=== PATIENT | female | born 1990 | race Caucasian/White ===

== ENCOUNTER 2018-03-30 03:00 | Outpatient (CLI) | payer OTHER, SELFPAY ==
[2018-03-30 03:32] VITALS: BMI 29.5
[2018-03-30 04:04] LABS: ROM Internal Control Test YES-OK TO RESULT pt. (Internal QC); ROM Patient Test Negative (Negative)
--- NOTE | 2018-03-31 08:05 | OB.TRI.NOTE ---
- Problem List (1) r/o srom Status: Acute History of Present Illness Date of Service: 03/30/18 Was patient seen by the physician?: No Reason For Visit: R/O LABOR Date of Service: 03/30/18 Final DUSYT: 04/01/18 Final DUSTY Source: US <20 weeks Gestational age: 39 Weeks and 6 Days History of Present Illness: Patient presents to triage reporting small gush of clear fluid leaking at 0030. Patient also notes scant irregular cramping. Denies vaginal bleeding. Reports +FM. Allergies No Known Allergies Allergy (Verified 03/30/18 03:34) Physical Exam Vitals: Vital signs and assessment per RN notes - patient was normotensive and afebrile NST - FHR Rate Baby A Baseline: 135 Variability:: Moderate Accelerations:: 15 x 15 Decelerations:: None NST Reactive:: Yes, Appropriate for gestational age FHR Category:: Category I Uterine Activity:: Ctx q 3-9 minutes, not easily palpable Impression/Plan 28 y/o @ 39.5 weeks, R/O SROM, False Labor P: 1) ROMPLus negative, no cervical change noted 2) Discharge patient to home 3) Labor precautions reviewed 4) RTC as scheduled for next visit with [facility] Purvi GUALLAP
--- NOTE | 2018-03-31 08:12 | OB.TRI.HP_ITS ---
- Problem List (1) r/o srom Status: Acute History of Present Illness Date of Service: 03/30/18 Was patient seen by the physician?: No Reason For Visit: R/O LABOR Date of Service: 03/30/18 Final DUSTY: 04/01/18 Final DUSTY Source: US <20 weeks Gestational age: 39 Weeks and 6 Days History of Present Illness: Patient presents to triage reporting small gush of clear fluid leaking at 0030. Patient also notes scant irregular cramping. Denies vaginal bleeding. Reports + FM. Allergies No Known Allergies Allergy (Verified 03/30/18 03:34) Physical Exam Vitals: Vital signs and assessment per RN notes - patient was normotensive and afebrile NST - FHR Rate Baby A Baseline: 135 Variability:: Moderate Accelerations:: 15 x 15 Decelerations:: None NST Reactive:: Yes, Appropriate for gestational age FHR Category:: Category I Uterine Activity:: Ctx q 3-9 minutes, not easily palpable Impression/Plan 28 y/o @ 39.5 weeks, R/O SROM, False Labor P: 1) ROMPLus negative, no cervical change noted 2) Discharge patient to home 3) Labor precautions reviewed 4) RTC as scheduled for next visit with [facility] Purvi GUALLPA
== END 2018-03-30 04:20 | disposition home or self-care (01) ==
LOC: WPOUT 03:31 → WP 03:31
PROVIDERS: Family Provider Family Medicine; PCP Family Medicine; Visit Provider Obstetrics & Gynecology
DX: O47.1 False labor at or after 37 completed weeks of gestation (principal); Z3A.39 39 weeks gestation of pregnancy
CPT/HCPCS: 59025; 84112; 99218; G0378

== ENCOUNTER 2018-04-06 20:00 | Inpatient (IN) | payer OTHER, SELFPAY ==
[2018-04-06] MEDS: Lactated Ringers 1,000 ML 50 ML IV (20:50)
[2018-04-06 20:51] VITALS: BMI 41.4
[2018-04-06 21:11] LABS: Hematocrit 31.8 % (37-47); Hemoglobin 10.3 g/dl (12.0-15.0); Mean Corp Hgb Conc 32.4 g/gl (32-36); Mean Corpuscular Hgb 26.8 pg (27.0-32.0); Mean Corpuscular Volume 82.6 fL (81-99); Mean Platelet Vol. 9.6 fl (6.2-12.0); Platelet Count 259 K/mm3 (150-450); RBC Distribution Width CV 14.3 % (11.6-14.6); RBC Distribution Width SD 43.2 fl (35.1-43.9); Red Blood Count 3.85 M/mm3 (4.2-5.4); White Blood Count 16.9 K/mm3 (4.4-11.0)
[2018-04-06 21:12] LABS: Scan Indicated on CBC? Y/N NO
--- NOTE | 2018-04-06 22:06 | PCM.HP.OB ---
History Date of Admission: 04/06/18 Final DUSTY: 04/01/18 Final DUSTY Source: US <20 weeks Gestational age: 40 Weeks and 5 Days History of this : This is a 28 year-old, G [], P [], at 40 weeks gestational age. Allergies No Known Allergies Allergy (Verified 03/30/18 03:34) Home Medications: Home Medications Vits [Prenatabs FA ] 1 tab PO DAILY 04/06/18 Smoking Status: Never smoker Alcohol: None Heart Tracin with minimal to moderate variability TOCO Analysis: Q2 min History Past Pregnancies: Past Pregnancies Delivery Date Name GA/Weeks Outcome Route Weight Gender Labor Length Anesthesia Delivery Location Provider FOB Labs: GBS negative see [facility] Physical Exam General: Alert, Oriented x3 Abdomen: Soft, Non Tender, Non-Distended, Gravid Cervix Dilation (cm): 10 Station: -1 Effacement (%): 100 Assessment/Plan All Active Problems r/o srom (Acute) 28yo female in labor Patient now complete pushing Nitrous oxide for pain, declines epidural Routine care
[2018-04-06] MEDS: Oxytocin 30 units/NS 500 ml 30 UNITS/500 ML IV.SOLN 334 UNITS IV (22:42)
--- NOTE | 2018-04-06 23:05 | PCM.OB.VAG ---
Vaginal Delivery Maternal Presentation: Active Labor Amniotic Membrane Rupture Type: Spontaneous at home Amniotic Fluid Description: Clear Final DUSTY: 04/01/18 Gestational age: 40 Weeks and 5 Days Date of Procedure: 04/06/18 Pre-Operative Diagnosis: Labor Post-Operative Diagnosis: Labor Surgery/ Procedure Performed: Spontaneous Vaginal Delivery Type of Anesthesia: Local with 1% lidocaine - and nitrous oxide Description of Procedure: Patient prepped & draped when c/c/+3. She pushed & delivered head easily. Gentle traction placed on head to allow delivery of anterior & posterior shoulders. No excess traction placed on head. Body delivered easily & placed on maternal abdomen. 3VC clamped & cut in delayed fashion. Placenta delivered with gentle traction. Good uterine tone obtained. Presentation: JUSTIN Placental Delivery Description: Expressed Placenta Disposition: [facility] Cord Vessel Description: 3 Vessels Cord Entanglement: None Estimated Blood Loss: 200ml A gender: Female (1 minute): 8 (5 minute): 9 Episiotomy Description: None Laceration: 2nd degree - perineal - repaired with 3-0 vicryl Medications given after delivery: IV Pitocin Complications: None
[2018-04-06] MEDS: Oxytocin 30 units/NS 500 ml 30 UNITS/500 ML IV.SOLN 167 UNITS IV (23:15)
[2018-04-06] MEDS: Methylergonovine 0.2 MG/ML Ampul IM (23:35)
[2018-04-06] MEDS: Ibuprofen 600 MG Tablet PO (23:39)
[2018-04-07 04:00] VITALS: BP 116/71; PULSE 77; RESP 18; TEMP 36.8
[2018-04-07 08:47] VITALS: BP 120/78; PULSE 73; RESP 16; TEMP 36.6; O2SAT 99
--- NOTE | 2018-04-07 09:00 | PCM.PN.OB ---
Subjective: Doing well per patient and nursing staff. Ambulating and taking PO without difficulty. Voiding and passing flatus. without complaints. - Physical Exam General: Alert, Oriented x3, Cooperative HEENT: Atraumatic, Normocephalic Lungs: Clear to auscultation, Normal air movement, No rhonchi, No wheeze Cardiovascular: Regular rate, Regular Rhythm, No murmurs Abdomen: Bowel Sounds Present, Soft, - - Fundus firm 1 below U Extremities: Edema - +1 BLE, non pitting. Psych/Mental Status: Normal Affect, Appropriate Vital Signs Temp Pulse Resp BP Pulse Ox 98 F 73 16 120/78 99 04/07/18 08:47 04/07/18 08:47 04/07/18 08:47 04/07/18 08:47 04/07/18 08:47 Oxygen Delivery Method Room Air Weight: 184 lb 15.485 oz Body Mass Index (BMI) 41.4 Intake and Output for Last 24 Hours 04/05/18 04/06/18 04/07/18 23:59 23:59 23:59 Intake Total 1180 / 1180 Output Total 750 / 750 Balance 430 / 430 Laboratory Tests Past 24 Hrs 04/06/18 04/06/18 20:50 20:50 WBC 16.9 H RBC 3.85 L Hgb 10.3 L Hct 31.8 L MCV 82.6 MCH 26.8 L MCHC 32.4 RDW 14.3 RDW Differential 43.2 Plt Count 259 MPV 9.6 Blood Type A POSITIVE Antibody Screen NEGATIVE Medical Necessity - Tobacco Use Smoking Status: Never smoker Assessment/Plan All Active Problems r/o srom (Acute) A: PPD#1 P: 1) Routine PP orders 2) Pain controlled 3) Planning D/C home tomorrow.
[2018-04-07 16:40] VITALS: BP 157/85; PULSE 87; RESP 16; O2SAT 98
[2018-04-07 16:45] VITALS: BP 123/72; TEMP 37.4
--- NOTE | 2018-04-07 16:50 | NURSING ---
assessment unchanged from 0800
[2018-04-07 20:00] VITALS: BP 120/84; PULSE 80; RESP 16; TEMP 37.6
[2018-04-08 02:30] VITALS: BP 126/80; PULSE 84; RESP 16; TEMP 37.3
--- NOTE | 2018-04-08 08:01 | PCM.PN.OB ---
Subjective: pt seen at bedside, doing well. pt reports good pain control. lochia mild. - Physical Exam General: Alert, Oriented x3 Abdomen: Soft, Non Tender, Non-Distended, - - fundus firm Vital Signs Temp Pulse Resp BP Pulse Ox 99.1 F 84 16 126/80 H 98 04/08/18 02:30 04/08/18 02:30 04/08/18 02:30 04/08/18 02:30 04/07/18 16:40 Oxygen Delivery Method Room Air Weight: 83.9 kg Body Mass Index (BMI) 41.4 Intake and Output for Last 24 Hours 04/06/18 04/07/18 04/08/18 23:59 23:59 23:59 Intake Total 1180 / 1180 Output Total 750 / 750 Balance 430 / 430 Medical Necessity - Tobacco Use Smoking Status: Never smoker Assessment/Plan All Active Problems r/o srom (Acute) PPD#2, doing well routine care dc home
--- NOTE | 2018-04-08 08:04 | DCINST_ITS ---
Discharge Diet: No Restrictions Discharge Activity: Return to Normal Activity, May not drive while taking narcotic pain medications., May Shower May resume sexual activity in: 4-6 weeks Additional Activity Instructions:: Nothing in the vagina for 4-6 weeks. You may return to work/school in 6 weeks. Call your doctor if your incision/area has: Continuous Slow Oozing, Sudden Increased Bleeding, Increased Pain/ Swelling, Increased Redness, Foul Smelling Discharge Additional Instructions: If you experience any of the following, contact your healthcare provider. * Bleeding that soaks a pad every hour for 2 hours * Fever 100.4 or higher * Unrelieved incision or abdominal pain * Swelling, redness, discharge or bleeding from your incision or episiotomy site * Your incision begins to separate * Problems urinating (including inability to urinate or burning while urinating) . * Visual changes * Severe headache * Flu-like symptoms * Pain or redness in one of both of your breasts * Pain, warmth, tenderness or swelling in your legs, especially the calf area * Frequent nausea and vomiting * Symptoms of depression or anxiety If you experience any of the following, call 911 or go to the nearest Emergency Room. * Chest pain * Problems breathing * Seizure activity * Partial or complete paralysis of a body part, slurred speech, weakness or drooping of the face, or a sudden inability to walk or hold your balance Allergies/Adverse Reactions: Allergies No Known Allergies Allergy (Verified 03/30/18 03:34) Medications to take at Discharge Vits [Prenatabs FA ] 1 tab PO DAILY 04/06/18 Ibuprofen [Motrin] 800 mg PO Q8H #30 tab 04/08/18 The following prescriptions were given: Ibuprofen [Motrin] 800 mg PO Q8H #30 tab When: Call to make an appointment with your doctor in 6 weeks. If you had elevated Blood Pressure or 4th degree laceration you will need to be seen in 2 weeks. Primary Care Physician: Matthwe Degroot MD [Primary Care Provider] - Test Results: Test results from this visit will be discussed in further detail at your follow- up appointment, if applicable.
[2018-04-08] MEDS: Ibuprofen 600 MG Tablet PO (10:28)
[2018-04-08 10:30] VITALS: BP 127/77; PULSE 77; RESP 24; TEMP 36.6; O2SAT 96
[2018-04-08 15:16] VITALS: BP 127/85; PULSE 74; RESP 20; TEMP 36.6; O2SAT 98
== END 2018-04-08 16:25 | disposition home or self-care (01) | DRG 775 ==
PROVIDERS: Admitting Provider Obstetrics & Gynecology; Family Provider Family Medicine; PCP Family Medicine; Visit Provider Obstetrics & Gynecology
DX: O42.02 Full-term premature rupture of membranes, onset of labor within 24 hours of rupture (principal); O70.1 Second degree perineal laceration during delivery; Z3A.40 40 weeks gestation of pregnancy; Z37.0 Single live birth
CPT/HCPCS: 59025; 59050; 85027; 86850; 86900; 99218; J7120; G0378

== ENCOUNTER 2018-04-13 12:10 | Outpatient (CLI) | payer OTHER, SELFPAY | END 2018-04-13 13:25 | disposition home or self-care (01) | LOC: WPOUT 12:15 → WP 12:16 | PROVIDERS: Family Provider Family Medicine; PCP Family Medicine; Visit Provider Obstetrics & Gynecology | DX: Z39.1 Encounter for care and examination of lactating mother (principal) | CPT/HCPCS: 96152 ==

== ENCOUNTER 2020-12-06 14:19 | Inpatient (IN) | payer OTHER, SELFPAY ==
[2020-12-06] VITALS (12 sets, daily range): BP systolic 105–139; BP diastolic 57–95; PULSE 69–106; RESP 16; TEMP 36.6; BMI 33.2
[2020-12-06] MEDS: Lactated Ringers 1,000 ML 200 ML IV (14:30)
[2020-12-06 14:53] LABS: Absolute Lymphocyte Count 2.03 X10^3/uL (0.83-4.51); Absolute Neutrophil Count 8.6 X10^3/uL (2.0-7.7); Basophil# 0.05 X10^3/uL; Basophil% 0.4 % (0-1); Eosinophil# 0.14 X10^3/uL; Eosinophils% 1.2 % (0-5); Hematocrit 34.7 % (37-47); Hemoglobin 10.7 g/dL (12.0-15.0); Lymphocyte # 2.03 X10^3/ul (4.0); Lymphocyte % 17.4 % (19-41); Mean Corp Hgb Conc 30.8 g/dL (32-36); Mean Corpuscular Hgb 25.7 pg (27.0-32.0); Mean Corpuscular Volume 83.2 fL (81-99); Mean Platelet Vol. 9.2 fl (6.2-12.0); Monocyte# 0.69 X10^3/uL; Monocyte% 5.9 % (0-10); NRBC Flagged by Analyzer 0 % (0-5); Neutrophil # 8.64 X10^3/uL (2.7-7.7); Neutrophil % 74.3 % (47-70); Platelet Count 287 K/mm3 (150-450); RBC Distribution Width CV 14.1 % (11.6-14.6); RBC Distribution Width SD 42.7 fl (35.1-43.9); Red Blood Count 4.17 M/mm3 (4.2-5.4); White Blood Count 11.6 K/mm3 (4.4-11.0)
[2020-12-06] MEDS: Oxytocin 30 units/NS 500 ml 30 UNITS/500 ML IV.SOLN 334 UNITS IV (15:11)
--- NOTE | 2020-12-06 15:18 | HP.PCM_ITS ---
History Date of Admission: 04/06/18 Final DUSTY: 12/06/20 Final DUSTY Source: US <20 weeks Gestational age: 40 Weeks and 0 Days History of this : This is a 30 year-old, G 2P1, at 40 weeks gestational age presents in active labor with spontaneous rupture membranes. Patient found to be 8 cm on arrival.admitted for labor. Allergies No Known Allergies Allergy (Verified 03/30/18 03:34) Home Medications: Home Medications Vits [Prenatabs FA ] 1 tab PO DAILY 04/06/18 Ibuprofen [Motrin] 800 mg PO Q8H #30 tab 04/08/18 Smoking Status: Never smoker Alcohol: None Number of Fetus(es): 1 History Past Pregnancies: Past Pregnancies Delivery Date Name GA/ Weeks Outcome Route Wt Sex Labor Length Anesthesia Delivery Location Provider FOB Physical Exam Vitals: Vital Signs Pulse BP 71 139/77 H 12/06/20 14:14 12/06/20 14:14 General: Alert, Oriented x3 Abdomen: Soft, Non Tender, Gravid Neurological: Cranial nerves II-XII grossly intact 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
--- NOTE | 2020-12-06 15:20 | OP.PCM_ITS ---
Vaginal Delivery Maternal Presentation: Active Labor, Spontaneous Rupture of Membranes Amniotic Membrane Rupture Type: Spontaneous at home Amniotic Fluid Description: Clear Final DUSTY: 12/06/20 Gestational age: 40 Weeks and 0 Days Date of Procedure: 12/06/20 Pre-Operative Diagnosis: Active labor, term gestation Post-Operative Diagnosis: same, live female Surgery/ Procedure Performed: Spontaneous Vaginal Delivery Type of Anesthesia: None Description of Procedure: precipitous delivery at 1407 on 12/06/20. of live female born without complications. Good maternal pushing efforts delivered the head followed by the anterior shoulder with gentle downward traction followed by the rest the 's body. was vigorous at and placed on the mother's chest for immediate skin to skin. Delayed cord clamping was performed. Pitocin was started and the placenta was delivered spontaneously without any complication and delivered intact. First-degree perineal laceration was repaired with the 3- 0 rapide. Lidocaine was first injected prior to the repair. Presentation: Vertex Placental Delivery Description: Spontaneous Placenta Disposition: [facility] Cord Vessel Description: 3 Vessels Cord Entanglement: None Estimated Blood Loss: 150 A gender: Female (1 minute): 8 (5 minute): 9 Episiotomy Description: None Laceration: Perineal Extension/lac - lidocaine 3cc injected and repaired with 3- 0 rapide., 1st degree Medications given after delivery: IV Pitocin Complications: None
[2020-12-06] MEDS: Ibuprofen 600 MG Tablet PO (16:09)
[2020-12-06] MEDS: Acetaminophen 500 MG Tablet 1000 MG PO (18:19)
[2020-12-07] VITALS: BP 130/64; PULSE 75; RESP 16; TEMP 36.9
[2020-12-07 04:00] VITALS: BP 116/69; PULSE 75; RESP 16; TEMP 37
[2020-12-07] MEDS: Acetaminophen 500 MG Tablet 1000 MG PO (04:09)
--- NOTE | 2020-12-07 08:04 | PCM.PN.OB ---
Subjective: Patient seen at bedside. Resting comfortably. Denies any pain. Ambulating and voiding without difficulty. without difficulty. Desires discharge home later today. - Physical Exam Vitals/I&O's: Vital Signs Temp Pulse Resp BP 98.6 F 75 16 116/69 12/07/20 04:00 12/07/20 04:00 12/07/20 04:00 12/07/20 04:00 Oxygen Delivery Method Room Air Weight: 206 lb Body Mass Index (BMI) 33.2 Intake and Output for Last 24 Hours 12/05/20 12/06/20 12/07/20 23:59 23:59 23:59 Intake Total 836.67 / 836.67 Balance 836.67 / 836.67 General: Alert, Oriented x3, Cooperative HEENT: Atraumatic Oral: Moist Mucosa Neck: Supple Lungs: Normal air movement Cardiovascular: Regular rate Abdomen: Soft, Non Tender, Passing Flatus Extremities: Capillary Refill Less than 3 Seconds Skin: No rashes Neurological: Cranial nerves II-XII grossly intact Psych/Mental Status: Normal Affect, Appropriate Microbiology Past 72 Hours 12/06/20 14:30 Mucosa - Nose SARS-CoV-2 Antigen (Rapid) - Final Laboratory Results 12/06/20 14:30: WBC 11.6 H, RBC 4.17 L, Hgb 10.7 L, Hct 34.7 L, MCV 83.2, MCH 25.7 L, MCHC 30.8 L, RDW Std Deviation 42.7, RDW Coeff of Neil 14.1, Plt Count 287, MPV 9.2, Immature Gran % (Auto) 0.800, Neut % (Auto) 74.3 H, Lymph % (Auto) 17.4 L, [place] % (Auto) 5.9, Eos % (Auto) 1.2, Baso % (Auto) 0.4, Absolute Neuts (auto) 8.6 H, Absolute Lymphs (auto) 2.03, Nucleated RBC % 0 12/06/20 14:30: Blood Type A POSITIVE, Antibody Screen NEGATIVE Current Medications Acetaminophen (Acetaminophen 500 Mg Tablet) 1,000 mg PO Q8H PRN PRN PRN Reason: Pain Score 1-3 Last Admin: 12/07/20 04:09 Dose: 1,000 mg Documented by: Bisacodyl (Bisacodyl 10 Mg Suppository) 10 mg RC UD PRN PRN Reason: If no BM Dibucaine (Dibucaine 30 Gm Tube) 1 applic TOPICAL TID PRN PRN; Protocol PRN Reason: Discomfort Hydrocortisone (Hydrocortisone 2.5% Crm) 1 applic TOPICAL TID PRN PRN; Protocol PRN Reason: Discomfort Ibuprofen (Ibuprofen 600 Mg Tablet) 600 mg PO Q6H PRN PRN PRN Reason: Pain Score 1-3 Last Admin: 12/06/20 16:09 Dose: 600 mg Documented by: Methylergonovine Maleate (Methylergonovine 0.2 Mg/Ml Ampul) 0.2 mg IM X1 PRN PRN Reason: Excess bleeding/uterine atony Ondansetron HCl (Ondansetron 4 Mg/2 Ml Vial) 4 mg IV Q4H PRN PRN PRN Reason: Nausea Oxycodone HCl (Oxycodone 5 Mg Tablet) 5 - 10 mg PO Q4H PRN PRN PRN Reason: Pain Score 4-10 Senna/Docusate Sodium (Senna/Docusate Sodium 1 Tablet) 1 - 2 tablet PO DAILY PRN PRN PRN Reason: Constipation Simethicone (Simethicone 80 Mg Tablet) 80 mg PO PCHS PRN PRN Reason: Indigestion/Stomach pain Sodium Chloride (0.9% Saline Lock 10 Ml Syringe) 5 - 15 ml IV UD PRN PRN Reason: SALINE FLUSH Medical Necessity - Tobacco Use Smoking Status: Never smoker Assessment/Plan All Active Problems r/o srom (Acute) PPD #1 Routine care support Discharge home later today with follow up in office
--- NOTE | 2020-12-07 08:06 | DCINST_ITS ---
Discharge Diet: No Restrictions May resume sexual activity in: 6-8 weeks Additional Instructions: If you experience any of the following, contact your healthcare provider. * Bleeding that soaks a pad every hour for 2 hours * Fever 100.4 or higher * Unrelieved incision or abdominal pain * Swelling, redness, discharge or bleeding from your incision or episiotomy site * Your incision begins to separate * Problems urinating (including inability to urinate or burning while urinating). * Visual changes * Severe headache * Flu-like symptoms * Pain or redness in one of both of your breasts * Pain, warmth, tenderness or swelling in your legs, especially the calf area * Frequent nausea and vomiting * Symptoms of depression or anxiety If you experience any of the following, call 911 or go to the nearest Emergency Room. * Chest pain * Problems breathing * Seizure activity * Partial or complete paralysis of a body part, slurred speech, weakness or drooping of the face, or a sudden inability to walk or hold your balance Allergies/Adverse Reactions: Allergies No Known Allergies Allergy (Verified 03/30/18 03:34) Medications to take at Discharge Vits [Prenatabs FA ] 1 tab PO DAILY 04/06/18 Ibuprofen [Motrin] 800 mg PO Q8H #30 tab 04/08/18 When: 2 weeks virtual/ 6 weeks in office Primary Care Physician: Matthew Saeed MD [Primary Care Provider] - Test Results: Test results from this visit will be discussed in further detail at your follow- up appointment, if applicable. Proposed Discharge Date: 12/07/20
--- NOTE | 2020-12-07 08:06 | PCM.DCVAG ---
Discharge Diet: No Restrictions May resume sexual activity in: 6-8 weeks Additional Instructions: If you experience any of the following, contact your healthcare provider. Bleeding that soaks a pad every hour for 2 hours Fever 100.4 or higher Unrelieved incision or abdominal pain Swelling, redness, discharge or bleeding from your incision or episiotomy site Your incision begins to separate Problems urinating (including inability to urinate or burning while urinating). Visual changes Severe headache Flu-like symptoms Pain or redness in one of both of your breasts Pain, warmth, tenderness or swelling in your legs, especially the calf area Frequent nausea and vomiting Symptoms of depression or anxiety If you experience any of the following, call 911 or go to the nearest Emergency Room. Chest pain Problems breathing Seizure activity Partial or complete paralysis of a body part, slurred speech, weakness or drooping of the face, or a sudden inability to walk or hold your balance Allergies/Adverse Reactions: Allergies No Known Allergies Allergy (Verified 03/30/18 03:34) Medications to take at Discharge Vits [Prenatabs FA ] 1 tab PO DAILY 04/06/18 Ibuprofen [Motrin] 800 mg PO Q8H #30 tab 04/08/18 When: 2 weeks virtual/ 6 weeks in office Primary Care Physician: Matthew Saeed MD [Primary Care Provider] - Test Results: Test results from this visit will be discussed in further detail at your follow-up appointment, if applicable. Proposed Discharge Date: 12/07/20
[2020-12-07 08:26] VITALS: BP 123/66; PULSE 73; RESP 16; TEMP 36.5
[2020-12-07] MEDS: Ibuprofen 600 MG Tablet PO (08:52)
[2020-12-07 12:52] VITALS: BP 123/72; PULSE 70; RESP 18; TEMP 36.3
[2020-12-07 17:13] VITALS: BP 116/74; PULSE 77; RESP 16; TEMP 36.5
== END 2020-12-07 17:35 | disposition home or self-care (01) | DRG 807 ==
LOC: WPOUT 14:34 → WP 14:34
PROVIDERS: Admitting Provider Obstetrics & Gynecology; PCP Family Medicine; Referring Provider Obstetrics & Gynecology; Visit Provider Obstetrics & Gynecology
DX: O62.3 Precipitate labor (principal); Z37.0 Single live birth; Z3A.40 40 weeks gestation of pregnancy; O70.0 First degree perineal laceration during delivery
CPT/HCPCS: 59025; 59050; 85025; 86850; 86900; 86901; 87426; 99218; J7120; G0378

== ENCOUNTER → 2021-07-09 10:39 | Outpatient (CLI) | payer OTHER, SELFPAY ==
[2021-07-09 12:33] LABS: Absolute Lymphocyte Count 1.67 X10^3/uL (0.83-4.51); Absolute Neutrophil Count 3.6 X10^3/uL (2.0-7.7); Basophil# 0.05 X10^3/uL; Basophil% 0.8 % (0-1); Eosinophil# 0.24 X10^3/uL; Eosinophils% 4.1 % (0-5); Hemoglobin 12.2 g/dL (12.0-15.0); Lymphocyte # 1.67 X10^3/ul (0.83-4.51); Lymphocyte % 28.4 % (19-41); Mean Corpuscular Hgb 29.5 pg (27.0-32.0); Mean Corpuscular Volume 89.4 fL (81-99); Mean Platelet Vol. 9.5 fl (6.2-12.0); Monocyte# 0.34 X10^3/uL; Monocyte% 5.8 % (0-10); NRBC Flagged by Analyzer 0 % (0-5); Neutrophil # 3.58 X10^3/uL (2.7-7.7); Neutrophil % 60.7 % (47-70); Platelet Count 274 K/mm3 (150-450); RBC Distribution Width SD 38.9 fl (35.1-43.9); Red Blood Count 4.14 M/mm3 (4.2-5.4); White Blood Count 5.9 K/mm3 (4.4-11.0)
[2021-07-09 12:51] LABS: AST(SGOT) 10 U/L (15-37); Alanine Aminotransfer ALT/SGPT 14 U/L (13-56); Albumin, Serum 3.9 g/dL (3.2-5.0); Alkaline Phosphatase 107 U/L (45-117); Anion Gap 7 (5-15); BUN 13 mg/dL (7-18); BUN/Creat Ratio 16.3 RATIO (10-20); Calcium,Total 8.8 mg/dL (8.5-10.1); Chloride 105 mmol/L (98-107); EST Glomerular Filtration Rate 90 mL/min (>60); Est Glom Filt Rate - Afr Amer 109 mL/min (>60); Globulin 3.8 g/dL (2.2-4.2); Glucose 81 mg/dL (74-106); Protein, Total 7.7 g/dL (6.4-8.2); Sodium Level 138 mmol/L (136-145); T4 Free Direct 1.01 ng/dL (0.76-1.46); Thyroid Stim Hormone (TSH) 1.03 uIU/mL (0.358-3.74)
[2021-07-11 09:08] LABS: Thyroid Stim Immunoglob <0.10 IU/L (0.00-0.55)
[2021-07-11 15:27] LABS: Anti-Thyroglobulin AB < 1.0 IU/mL (0.0-0.9); Thyroglobulin, Serum Qt. 57.5 ng/mL (1.5-38.5); Thyroid Peroxidase AB 12 IU/mL (0-34)
== END ==
PROVIDERS: PCP Family Medicine; Referring Provider Family Medicine; Visit Provider Family Medicine
DX: E01.0 Iodine-deficiency related diffuse (endemic) goiter (principal)
CPT/HCPCS: 36415; 80053; 84432; 84439; 84443; 84445; 85025; 86376; 86800

== ENCOUNTER → 2021-07-16 14:59 | Outpatient (CLI) | payer OTHER, SELFPAY ==
--- NOTE | 2021-07-16 15:06 | US_ITS ---
STUDY: THYROID ULTRASOUND REASON FOR EXAM: Female, 31 years old. THYROMEGALY TECHNIQUE: Ultrasound evaluation of the thyroid was performed with real-time and static moctezuma-scale imaging. COMPARISON: None. FINDINGS: RIGHT LOBE: The right lobe of the thyroid gland measures 5 x 2 x 1.3 cm. There is a homogeneous echotexture. 3 total nodules. Mid nodule measures 5 x 4 x 3 mm. The lesion is solid / cystic with regular margins and intra-nodular doppler flow. Mid nodule measures 5 x 4 x 3 mm. The lesion is cystic with regular margins and gary nodular doppler flow. Mid nodule measures 4 x 4 x3 mm. The lesion is cystic with regular margins and gary nodular doppler flow. LEFT LOBE: The left lobe of the thyroid gland measures 5.3 x 2 x 1.7 cm. There is a homogeneous echotexture. There is a nodule. This is noted inferiorly and is solid and cystic. It measures 24 x 18 x 15 mm. The lesion is solid / cystic with regular margins and intra-nodular doppler flow. ISTHMUS: The isthmus measures 4 mm. US/Thyroid IMPRESSION: There are RIGHT cystic nodules. This nodule is cystic or nearly completely cystic. TI-RADS points: 0. TI-RADS category: TR1. This nodule is benign and no FNA or follow-up is necessary. Single right solid and cystic lesion that is 5mm. This nodule is mixed cystic and solid, hyperechoic or isoechoic, [id number], smoothly marginated and contains no echogenic foci. TI-RADS points: 2. TI-RADS category: TR2. This nodule is not suspicious and no FNA or follow-up is necessary. There are left nodules. This nodule is mixed cystic and solid, hyperechoic or isoechoic, [id number], smoothly marginated and contains no echogenic foci. TI-RADS points: 2. TI-RADS category: TR2. This nodule is not suspicious and no FNA or follow-up is necessary. Electronically Signed: Onesimo Armstrong MD at 16:05 EST , Service support ,
== END ==
PROVIDERS: PCP Family Medicine; Referring Provider Family Medicine; Visit Provider Family Medicine
DX: E01.0 Iodine-deficiency related diffuse (endemic) goiter (principal)
CPT/HCPCS: 76536

== ENCOUNTER → 2022-07-16 | Outpatient (CLI) | payer OTHER, SELFPAY ==
--- NOTE | 2022-07-16 12:51 | US_ITS ---
STUDY: THYROID ULTRASOUND REASON FOR EXAM: Female, 32 years old. THYROMEGALY -- NODULES TECHNIQUE: Ultrasound evaluation of the thyroid was performed with real-time and static moctezuma-scale imaging. COMPARISON: 21 FINDINGS: RIGHT LOBE: The right lobe of the thyroid gland measures 5 x 1.8 cm. There is a homogeneous echotexture. 3 total nodules. These measure 5.1 x 4 x 3 mm, 4 x 3 x 2 mm, and 3 x 3 x 1 mm. LEFT LOBE: The left lobe of the thyroid gland measures 5.2 x 2.2 cm. There is a homogeneous echotexture. Single nodule measures 26 x 22 mm. The lesion is solid / cystic with regular margins and intra-nodular doppler flow. ISTHMUS: The isthmus measures 3 mm. US/Thyroid IMPRESSION: There are left nodules. This nodule is mixed cystic and solid, hyperechoic or isoechoic, [id number], smoothly marginated and contains no echogenic foci. This nodule is not suspicious and no FNA or follow-up is necessary. Nodule 2 and 3 RIGHT nodules. This nodule is cystic or nearly completely cystic. This nodule is benign and no FNA or follow-up is necessary. Right nodule #1. This nodule is solid or almost completely solid, hypoechoic, [id number], smoothly marginated and contains no echogenic foci. TI-RADS points: 4. TI-RADS category: TR4. This nodule is moderately suspicious but no FNA or follow-up is necessary given the small size of this nodule. Electronically Signed: Onesimo Armstrong MD at 21:41 EST ,
== END | disposition home or self-care (01) ==
PROVIDERS: PCP Family Medicine; Visit Provider Family Medicine
DX: E01.0 Iodine-deficiency related diffuse (endemic) goiter (principal)
CPT/HCPCS: 76536

== ENCOUNTER → 2022-08-25 | Outpatient (CLI) | payer OTHER, SELFPAY ==
[2022-08-25 10:53] LABS: Free T3 2.6 pg/mL (2.18-3.98); T4 Free Direct 1.09 ng/dL (0.76-1.46)
[2022-08-27 20:54] LABS: Anti-Thyroglobulin AB < 1.0 IU/mL (0.0-0.9); Thyroglobulin, Serum Qt. 39.4 ng/mL (1.5-38.5)
== END | disposition home or self-care (01) ==
LOC: PAVLAB 09:53
PROVIDERS: PCP Family Medicine; Referring Provider Surgery; Visit Provider Surgery
DX: E04.1 Nontoxic single thyroid nodule (principal)
CPT/HCPCS: 36415; 84432; 84439; 84443; 84481; 86800

== ENCOUNTER → 2022-09-05 | Outpatient (CLI) | payer OTHER, SELFPAY ==
--- NOTE | 2022-09-05 | ASPSI_PTH ---
PATIENT: WANDA MCKEON LOC: [facility] U#:[id number] AGE/SX: 32/F ROOM: RE09/05/[address]: Dr. Miguel Angel Rooney MD : 1990 BED: DIS: 09/05/2022 SPEC #: [id number] RECD: 09/05/22 13:17 STATUS: ESTEFANY REJuan Daniel #: [id number] JUAN: 09/05/22 00:[address]: Miguel Angel Rooney DEPT: CYTOLOGY RECD BY: Alex Orellana ENTERED: 09/05/22 13:18 SP TYPE: MAXINE GUAMAN DR: Dr. Matthew Saeed MD Tissues: A - Thyroid gland, NOS B - Thyroid gland, NOS Procedures: Surgery Specimen Level IV Cytospin Fluid Cytology Other HEADER OPERATION: Left thyroid nodule fine needle aspiration PRE-OP DIAGNOSIS: Left thyroid nodule TISSUE SUBMITTED: A - Left thyroid nodule fluid, B - Left thyroid nodule x10 slides DIAGNOSIS CYTOLOGY A. Fine needle aspiration, left thyroid nodule fluid (cytospin and cell block): Benign, consistent with benign follicular nodule with cystic change ([place] Category II). See comment. B. Fine needle aspiration, left thyroid nodule (smears): Adequate for evaluation. Benign, consistent with benign follicular/colloid nodule ([place] Category II). See comment. AM:abena 09/09/2022 COMMENT The [place] System for thyroid diagnostic categorization was used in the evaluation of this case. The specimen is adequate for evaluation. CYTOLOGY STUDY Slides are reviewed. CYTOLOGY GROSS A - Received is 1 ml of brown cloudy fluid labeled with the patient's name and and designated per the requisition as left thyroid nodule. Submitted for cytology preparation including cell block. B - Received are ten smears labeled with the patient's name and designated per the requisition as left thyroid nodule. Submitted for staining. / abena 09/05/2022 TC:5 CPT: 88565 x2, 87478
== END | disposition home or self-care (01) ==
LOC: LABSPEC 12:59
PROVIDERS: PCP Family Medicine; Referring Provider Surgery; Visit Provider Surgery
DX: Z34.90 Encounter for supervision of normal pregnancy, unspecified, unspecified trimester (principal)
CPT/HCPCS: 88108; 88161; 88305

== ENCOUNTER → 2023-07-18 | Outpatient (CLI) | payer OTHER, SELFPAY ==
--- NOTE | 2023-07-18 08:55 | US_ITS ---
STUDY: THYROID ULTRASOUND REASON FOR EXAM: Female, 33 years old. Known nodules TECHNIQUE: Ultrasound evaluation of the thyroid was performed with real-time and static moctezuma-scale imaging. COMPARISON: and FINDINGS: RIGHT LOBE: The right lobe of the thyroid gland measures 4.8 x 1.8 x 1.4 cm. There is a homogeneous echotexture. 2 separate stable solid and cystic nodules both measuring approximately 5 mm. Nodules are mixed cystic and solid, hyperechoic or isoechoic, [id number], smoothly marginated and contains no echogenic foci. TI-RADS points: 2. TI-RADS category: TR2. Nodules are not suspicious and no FNA or follow-up is necessary. LEFT LOBE: The left lobe of the thyroid gland measures 4.9 x 2.2 x 1.6 cm. There is a homogeneous echotexture. Stable solid/cystic 2.5 cm nodule This nodule is mixed cystic and solid, anechoic, [id number], smoothly marginated and contains no echogenic foci. TI-RADS points: 1. TI-RADS category: TR1. This nodule is benign and no FNA or follow-up is necessary. ISTHMUS: The isthmus measures 2.6 mm. The regional lymph nodes are normal. US/Thyroid IMPRESSION: Borderline enlarged homogeneous thyroid gland with stable bilateral complex solid and cystic nodules. Follow-up and categorization as described above Electronically Signed: Deni Riley MD at 13:00 EST ,
== END | disposition home or self-care (01) ==
PROVIDERS: PCP Family Medicine; Visit Provider Surgery
DX: E04.1 Nontoxic single thyroid nodule (principal)
CPT/HCPCS: 76536

== ENCOUNTER 2025-07-11 07:21 | Inpatient (IN) | payer BC, SELFPAY ==
[2025-07-11] VITALS (14 sets, daily range): BP systolic 125–143; BP diastolic 60–85; PULSE 69–103; RESP 16; TEMP 36.6–36.8; O2SAT 97–99; BMI 37.8
[2025-07-11] MEDS: Lactated Ringers 1,000 ML 50 ML IV (07:45)
[2025-07-11] MEDS: Oxytocin 15 Units/NS 250ml 15 UNITS/250 ML IV.SOLN 2 UNITS IV (07:55)
[2025-07-11 08:10] LABS: Hematocrit 32.6 % (37-47); Hemoglobin 11.1 g/dL (12.0-15.0); Immature Granulocytes Count 0.060 X10^3/uL (0.0-0.0); Mean Corp Hgb Conc 34.0 g/dL (32-36); Mean Corpuscular Volume 87.9 fL (81-99); Mean Platelet Vol. 9.5 fl (6.2-12.0); NRBC Flagged by Analyzer 0 % (0-5); Platelet Count 207 K/mm3 (150-450); RBC Distribution Width CV 13.6 % (11.6-14.6); RBC Distribution Width SD 43.7 fl (35.1-43.9); Red Blood Count 3.71 M/mm3 (4.2-5.4); White Blood Count 8.6 K/mm3 (4.4-11.0)
[2025-07-11 09:04] LABS: Syphilis Antibodies Nonreactive (Nonreactive)
[2025-07-11] MEDS: 0.9% Normal Saline Single 100 ML IV.SOLN. INTRA-UTER (09:05)
--- NOTE | 2025-07-11 09:05 | PCM.HP.OB ---
HPI - General General Date of Admission: 07/11/25 HPI Narrative WANDA MCKEON, is a 35 F who presents for induction Maternal Data Information DUSTY Calculator Estimated Delivery Date Method Current WG Current Estimate 07/18/25 Manual 39w 0d PFSH PFS Medical History Thyroid nodule Anemia Home Medications ?Medication ?Instructions ?Recorded ?Last Taken ?Type vits,calcium no.78-iron 1 tab PO DAILY 04/06/18 04/06/18 History fumarate-folic acid 29 mg-1 mg one tablet (Prenatabs FA) Allergy/AdvReac Type Severity Reaction Status Date / Time azithromycin AdvReac Severe Abd Verified 07/11/25 07:19 cramps/diarrhea Family History Father Hypertension Mother Hypertension Surgical History S/P fine needle aspiration Social History Smoking Status: Never smoker History Elective abortions Hx Para 2 Spontaneous abortions Hx # Term Pregnancies Ectopic pregnancies Hx # Pregnancies Multiple births # of living children NST FHR Rate Baby A Baseline: 135 Variability:: Moderate Accelerations:: 15 x 15 Decelerations:: None Uterine Activity:: Irregular Vital Signs Vital Signs Vital Signs: 07/11/25 07:39 07/11/25 07:39 07/11/25 07:39 Temperature 98.0 F Temperature Source Temporal Pulse Rate Respiratory Rate 16 Blood Pressure BP Systolic BP Diastolic 07/11/25 08:15 07/11/25 08:15 Temperature Temperature Source Pulse Rate 73 Respiratory Rate Blood Pressure 131/73 H BP Systolic 131 BP Diastolic 73 Weight Weight: 234 lb Body Mass Index (BMI) 37.8 Physical Exam Const alert, oriented x3 and no apparent distress GI soft to palpation, non-tender, non-distended and no masses Inspection: gravid external exam normal Narrative: cvx - 2/70/-3, intracervical núñez placed Labs Labs Labs: Blood Type A POSITIVE Antibody Screen NEGATIVE Hct, (37-47) 32.6 % L Hgb, (12.0-15.0) 11.1 g/dL L Syphilis Total Ab, (Nonreactive) Nonreactive Rhogam given: No Assessment & Plan (1) 39 weeks gestation of : PLAN: Plan Admit to L&D Induction - intracervical núñez placed and on pitocin GBS negative EFW - less than 4500g and pelvis adequate Routine care
--- NOTE | 2025-07-11 12:14 | PCM.PN.OB ---
Subjective Subjective Coping well with contractions. Father of baby at bedside. Objective Data Objective Data Vital Signs: Vital Signs Temp Pulse Resp BP 98.0 F 73 16 131/73 H 07/11/25 07:39 07/11/25 08:15 07/11/25 07:39 07/11/25 08:15 Weight: 234 lb Body Mass Index (BMI) 37.8 Intake & Output: Intake and Output for Last 24 Hours 07/09/25 07/10/25 07/11/25 22:59 23:59 23:59 Intake Total 11.53 / 11.53 Balance 11.53 / 11.53 Lab / Micro Data 07/11/25 07:45 Labs: Laboratory Results - last 24 hr 07/11/25 07:45: WBC 8.6, RBC 3.71 L, Hgb 11.1 L, Hct 32.6 L, MCV 87.9, MCH 29.9, MCHC 34.0, RDW Std Deviation 43.7, RDW Coeff of Neil 13.6, Plt Count 207, MPV 9.5, Immature Gran % (Auto) 0.700, Neut % (Auto) 75.1 H, Lymph % (Auto) 14.7 L, [place] % (Auto) 5.9, Eos % (Auto) 3.0, Baso % (Auto) 0.6, Absolute Neuts (auto) 6.4, Absolute Lymphs (auto) 1.26, Nucleated RBC % 0, Syphilis Total Ab Nonreactive, Blood Type A POSITIVE, Antibody Screen NEGATIVE Physical Exam Manual OB Exam: estimated gestational size large, presentation cephalic, dilated 4, effaced 50, station -1 and other arom clear fluid NST FHR Rate Baby A Baseline: 130 Variability:: Moderate Accelerations:: 15 x 15 Decelerations:: None FHR Category:: Category I Uterine Activity:: Every 2-3 minutes Assessment & Plan (1) 39 weeks gestation of : (2) Encounter for induction of labor: (3) LGA (large for gestational age) fetus: PLAN: Plan 1) Continue with active management 2) Desires unmedicated 3) AROM clear fluid 4) Dr.James calero physician and notified of patient above assessment and plan of care
--- NOTE | 2025-07-11 18:18 | EX.PCM.OBVAG ---
Assessment & Plan (1) Vaginal delivery: (2) First degree perineal laceration: Maternal Data Information DUSTY Calculator Estimated Delivery Date Method Current WG Current Estimate 07/18/25 Manual 39w 0d Vaginal Delivery Maternal Presentation Maternal Presentation: Elective Induction (suspected LGA) Type of Induction: Pitocin and Sanz Bulb Vaginal Delivery Information Procedure Performed: Spontaneous Vaginal Delivery Surgeon/Practitioner: Isabell Brown Date of Procedure: 07/11/25 Pre-Procedure Diagnosis: Induction of labor for suspected LGA Post-Procedure Diagnosis: , first degree perineal laceration Type of anesthesia: None Estimated Blood Loss: 400ml Time of Delivery: 17:58 Findings Description of procedure: Progressed to complete with urge to push. Unmedicated. of viable male over first degree perineal laceration . APGARS 8,9 respectively. head delivered with body immediately forthcoming. Placed on maternal abdomen, strong cry. Mouth and nares suctioned for secretions. Pitocin started for active 3rd stage management. Cord doubly clamped and cut by FOB after pulsations ceased, delayed cord clamping. Placenta delivered intact via claros, 3 vessel cord intact. Perineum inspected and revealed first degree perineal laceration. Repaired with 3.0 vicryl rapide and epidural Fundus firm. Bleeding increased and methergine given and hemostasis achieved. EBL 400ml. Vaginal sweep completed by me, sponge and instrument correct. Mom and baby stable, planning to breastfeed. Family bonding well. notified of delivery. 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
[2025-07-11] MEDS: Oxytocin 15 Units/NS 250ml 15 UNITS/250 ML IV.SOLN 83 UNITS IV (18:30)
[2025-07-11] MEDS: Oxytocin 15 Units/NS 250ml 15 UNITS/250 ML IV.SOLN 334 UNITS IV (18:35)
[2025-07-12 00:38] VITALS: BP 137/82; PULSE 76; PULSE 81; RESP 14; TEMP 36.6; O2SAT 99
[2025-07-12 05:05] VITALS: BP 137/71; PULSE 100; PULSE 97; RESP 16; TEMP 36.6; O2SAT 97; O2SAT 98
[2025-07-12 08:18] VITALS: BP 126/68; PULSE 84; RESP 16; TEMP 36.3
[2025-07-12 08:20] VITALS: BP 126/68; PULSE 84
--- NOTE | 2025-07-12 08:27 | PCM.DC.SUM ---
Providers Date of Admission: 07/11/25 Primary Care Physician: Dr. Matthew Saeed MD Reason For Visit: VAG DELIVERY Diagnosis Discharge Diagnosis (1) Vaginal delivery: Status: Acute Code(s): O80 - Encounter for full-term uncomplicated delivery (2) First degree perineal laceration: Status: Acute Code(s): O70.0 - First degree perineal laceration during delivery Medications at Discharge Home Medications vits,calcium no.78-iron fumarate-folic acid 29 mg-1 mg tablet (Prenatabs FA) 1 tab PO DAILY 04/06/18 acetaminophen 500 mg tablet 1,000 mg (2 x 500 mg) PO Q6H PRN PRN Pain 1-10 Or Fever #0 tabs 07/12/25 ibuprofen 600 mg tablet 600 mg PO Q6H PRN PRN Pain Score 1-10 #0 tabs 07/12/25 Hospital Course Operations None Procedures None Summary of Care Provided Minutes Spent on Discharge: 15 Hospital Course: Patient had vaginal delivery. Hospital course was uneventful. Physical Exam Narrative Patient seen at bedside. Denies pain. Ambulating and voiding without difficulty. Lochia decreased. Desires discharge home today. Const alert and oriented x3 General Appearance: Negative for in distress HEENT normocephalic Eyes General Eye: normal appearance of both eyes Neck General: normal visual inspection Chest Chest: symmetrical chest wall rise Resp normal respiratory effort and normal air movement Effort and Inspection: symmetric chest movement; Negative for tachypneic Auscultation: clear to auscultation bilaterally Cardio regular rate and regular rhythm Peripheral Pulses: pulses 2+ throughout GI normal to inspection, nondistended, normoactive bowel sounds Narrative: Ice to perineum OB / External & Speculum: vaginal bleeding and other Lochia decreasing Uterus Palpation: uterus fundus firm (Below U) Extremity normal to inspection, full ROM and normal capillary refill Skin no rashes or lesions noted Neuro oriented x3, CN's II-XII intact bilaterally and gait normal Psych mental status grossly normal, thought process normal and activity/motor behavior normal Weight / BMI Weight Weight: 234 lb Body Mass Index (BMI) 37.8 ABG / Lab / Microbiology Data 07/11/25 07:45 Laboratory: Laboratory Results - last 24 hr 07/11/25 07:45: Syphilis Total Ab Nonreactive, Blood Type A POSITIVE, Antibody Screen NEGATIVE D/C Instructions Discharge Activity: Return to Normal Activity, No Restrictions, May Drive, May Shower and May Take a Tub Bath (Warm water only. No bath salts, soaps, bubbles) May resume sexual activity in: 6-8 weeks Weight Bearing Status: Weight bearing as tolerated Call your doctor if you observe: Fever of 101 or Higher, Inability to urinate, Using more than 1 pad per hour, Shortness of breath, Dizziness, Chest pain, Calf discomfort and Uncontrolled pain DC O2, CPAP, BIPAP Needs Home O2 Discharge instructions: No Please Follow Up With: [facility] Tonia VALENCIA When: 2 weeks in office or virtual Meaningful Use Info Meaningful Use Meaningful Use Diagnoses (Choose all that apply): None applicable Discharge Plan Admission Admit Date/Time: 07/11/25 07:00 Primary Reason for Your Visit: Labor and Delivery Attending Provider: Silvio Villalta Primary Care Provider: Matthew Saeed Discharge Orders/Prescriptions Prescriptions: New acetaminophen 500 mg Tablet 1,000 mg PO Q6H PRN PRN (Reason: Pain 1-10 Or Fever) Qty: 0 0RF ibuprofen 600 mg Tablet 600 mg PO Q6H PRN PRN (Reason: Pain Score 1-10) Qty: 0 0RF Continued Prenatabs FA 1 TABLET tablet 1 tab PO DAILY Referrals / Follow Up: Matthew Saeed MD [Primary Care Provider, Family Practice] Disposition Disposition (needs filled in before D/C Order can be placed): Home, Self Care
[2025-07-12 13:02] VITALS: BP 120/57; PULSE 85; RESP 16
[2025-07-12] MEDS: FLU VACCINE 2025-26(6MOS UP) 45 MCG/0.5 ML SYRINGE IM (15:44)
[2025-07-12] MEDS: Prenatal Vits Tablet 1 TABLET PO (15:44)
[2025-07-12 16:52] VITALS: BP 127/68; PULSE 81; RESP 16
== END 2025-07-12 19:00 | disposition home or self-care (01) | DRG 807 ==
PROVIDERS: Admitting Provider Obstetrics & Gynecology; PCP Family Medicine; Referring Provider Obstetrics & Gynecology; Visit Provider Obstetrics & Gynecology
DX: O36.63X0 Maternal care for excessive fetal growth, third trimester, not applicable or unspecified (principal); Z37.0 Single live birth; O69.81X0 Labor and delivery complicated by cord around neck, without compression, not applicable or unspecified; O70.0 First degree perineal laceration during delivery; Z3A.39 39 weeks gestation of pregnancy
CPT/HCPCS: 59025; 59050; 85025; 86780; 86850; 86900; 86901; 99221; G0378